=== PATIENT | male | born 1970 | race Asian ===

== ENCOUNTER → 2016-11-29 | Outpatient (CLI) | payer OTHER ==
[~2016-11-29] MED LIST: NONE PER PT
== END ==
LOC: STAR 08:46
PROVIDERS: ATTEND Internal Medicine Geriatric Medicine
DX: Z02.9 Encounter for administrative examinations, unspecified (principal)

== ENCOUNTER 2016-12-11 06:35 | Day surgery (SDC) | payer OTHER ==
[2016-11-29 09:11] VITALS: BP 129/95
[~2016-12-11] VITALS: Ht 172.7 cm; Wt 63.0 kg
[2016-12-11] MEDS ORDERED: LACTATED RINGERS 1,000 ML IV SCH (06:54)
[2016-12-11] MEDS ORDERED: LIDOCAINE 1%, 2ML SQ PRN (07:00)
[2016-12-11] MEDS ORDERED: ONDANSETRON 2MG/ML, 2ML ONE (07:42)
[2016-12-11] MEDS ORDERED: PROPOFOL 10 MG/ML, 20ML ONE (07:42)
[2016-12-11] MEDS ORDERED: DEXAMETHASONE 4 MG/ML, 1ML ONE (07:42)
[2016-12-11] MEDS ORDERED: MIDAZOLAM 1 MG/ML, 2ML IV PRN (08:30)
[2016-12-11] MEDS ORDERED: ONDANSETRON 2MG/ML, 2ML IVPush PRN (08:30)
[2016-12-11] MEDS ORDERED: PROMETHAZINE 25 MG/ML, 1ML IV PRN (08:30)
[2016-12-11] MEDS ORDERED: FENTANYL PF 100 MCG/2ML IV PRN (08:30)
[2016-12-11] MEDS ORDERED: hydrALAzine 20 MG/ML, 1ML IV PRN (08:30)
[2016-12-11] MEDS ORDERED: OXYcodone 5 MG/5 ML ORAL.SOL UDC PO PRN (08:30)
[2016-12-11] MEDS ORDERED: HYDROmorphone 1 MG/ML, 1ML IV PRN (08:30)
[2016-12-11] MEDS ORDERED: LABETALOL 5MG/ML, 20ML IV PRN (08:30)
[2016-12-11] MEDS ORDERED: ALBUTEROL SULFATE 2.5 MG/3 ML NPPB PRN (08:30)
[2016-12-11] MEDS ORDERED: MEPERIDINE/PF 25MG/0.5ML IVPush PRN (08:30)
== END 2016-12-11 10:45 ==
LOC: OUT 06:35
PROVIDERS: ATTEND Internal Medicine Geriatric Medicine
DX: R93.3 Abnormal findings on diagnostic imaging of other parts of digestive tract (principal)
CPT/HCPCS: 43237; J1100; J2405; J2704